=== PATIENT | male | born 1945 | race Caucasian/White ===

== ENCOUNTER → 2017-11-22 | Outpatient (CLI) | payer MEDICARE, OTHER ==
[~2017-11-22] MED LIST: ALLOPURINOL 30300 M2 PO; ASPIR 8181 MG PO; ASPIRIN325 PO; BACTRIM DS TAB1 EACH; CIPRO500 MG PO; FISH OIL 1,0001 EAC8 PO; IRON325 PO; LEVSIN0.125 MG PO; LISINOPRIL10 MG PO; LOVASTATIN 20 M20 MG PO; OSTEO BI-FLEX1 EAC1; OSTEO BI-FLEX1 EAC1 PO; PERCOCET 10-321 EACH PO; PHENAZOPYRIDIN200 M2 PO; POTASSIUM CHLO10 ME1 PO; PROSCAR 5MG TABL5 MG; TOPROL XL50 MG PO; UROCIT-K10 ME1 PO; ZOCOR 10 MG TAB10 MG PO
--- NOTE | 2017-11-22 16:05 | EXE ---
[place] [address] STRESS ECHOCARDIOGRAM Name: SHANT SMITH Room: [facility]#: [id number] Admission: 11/22/17 Attend Phys: Hernandez Cheney, Discharge: Date of : 41 Date of Service: 11/22/17 1605 Report #: [id number] THIS REPORT FOR: //name// APPROVED REPORT Study performed: 11/22/2017 13:00:30 Exam: Stress Echocardiogram Indication: Chest pain , Congestive Heart Failure Medical History Medical History: Atrial Fibrillation Cardiac Risk Factors: Hyperlipidemia, HTN, FHX of CAD Procedure The patient underwent an Exercise Stress Test using the Brent Protocol. Blood pressure, heart rate, and EKG were monitored. An Echocardiogram was performed by cd technician in four stages in quad fashion. At peak stress, four selected images were obtained and placed side by side with resting images for comparison. Echo Enhancing Agent Indication: Endocardial border delineation Agent(s) / Amount(s) Used: Optison 8 cc Stress Test Details Stress Test: Exercise stress testing was performed using a Brent protocol. HR Resting HR: 50 bpm Max Heart Rate (APMHR): 146 bpm Max HR Achieved: 133 bpm Target HR (85% APMHR): 124 bpm % of APMHR: 91 Recovery HR: 72 bpm HR response to stress: Normal HR response to stress BP Resting BP: 127/73 mmHg Max BP: 219/71 mmHg Recovery BP: 145/75 mmHg ECG Resting ECG: Sinus Rhythm Stress ECG: Sinus Rhythm ST Change: Horizontal ST depression Maximum ST Deviation: 0.5-1 [place] [address] STRESS ECHOCARDIOGRAM Name: SHANT SMITH Room: [facility]#: [id number] Admission: 11/22/17 Attend Phys: Hernandez Cheney, Discharge: Date of : 41 Date of Service: 11/22/17 1605 Report #: [id number] Recovery ECG: Sinus Rhythm Recovery ST Change: Normal Clinical Reason for Termination: Arrhythmias Stress Symptoms: Fatigue Exercise duration: 9 min sec Highest Stage Achieved: Stage 3: 3.4 mph at 14% grade. Exercise capacity: 10.16 METs Stress ECG Conclusion positive Pre-Stress Echo The resting Echocardiogram showed normal left ventricular contractility with an estimated Ejection Fraction of about 50-55%. Post-Stress Echo The stress Echocardiogram demonstrated wall motion abnormality in the apical septal wall. Conclusion Clinical Response: Non-ischemic Exercise Capacity: Superior Stress ECG Response: Ischemic Stress Echo Images: Ischemic There is a new exercise induced wall motion abnormality in the apical segment of the Left ventricle and subtle ECG abnormality Other Information Technically limited study due to body habitus. <Conclusion> There is a new exercise induced wall motion abnormality in the apical segment of the Left ventricle and subtle ECG abnormality <ELECTRONICALLY SIGNED> By: Arnoldo Reyes MD, FACC 11/22/17 1605 160 Arnoldo Reyes MD, FACC /INF
== END ==
LOC: M.CRD 12:17
DX: I50.9 Heart failure, unspecified (principal); I48.91 Unspecified atrial fibrillation

== ENCOUNTER 2019-04-17 22:56 | Inpatient (IN) | payer MEDICARE, OTHER ==
[~2019-04-17] VITALS: Ht 185.4 cm; Wt 97.9 kg
[~2019-04-17 22:56] MED LIST changes: -ALLOPURINOL 30300 M2 PO; -OSTEO BI-FLEX1 EAC1; -PROSCAR 5MG TABL5 MG; +PROSCAR 5MG TABL5 MG PO; +ZYLOPRIM300 MG PO
[2019-04-17 22:58] VITALS: BP 173/78
[2019-04-17 23:18] LABS: ABSOLUTE BASOPHILS 0.1 thou/uL (0.0-0.2); ABSOLUTE EOSINOPHILS 0.1 thou/uL (0.0-0.7); ABSOLUTE LYMPHOCYTES 1.8 thou/uL (0.8-5.3); ABSOLUTE MONOCYTES 0.6 thou/uL (0.0-1.2); ABSOLUTE NEUTROPHILS 4.3 thou/uL (1.6-8.1); BASOPHILS 1.1 %; EOSINOPHILS 1.4 %; HEMATOCRIT 40.7 % (42.0-52.0); HEMOGLOBIN 13.4 gm/dL (14.0-18.0); LYMPHOCYTES 25.7 %; MCH 29.7 pg (26.0-34.0); MCHC 32.8 g/dL (28.0-37.0); MCV 90.5 fL (80.0-100.0); MONOCYTES 8.7 %; MPV 11.3 fl. (7.2-11.1); NUCLEATED RBCS 0 /100WBC; PLATELET COUNT* 139 thou/uL (150-400); POLYS 63.1 %; RDW-CV 15.7 % (10.5-14.5); WBC 6.8 thou/uL (4.0-11.0)
[2019-04-17] MEDS ORDERED: NAPROSYN500 MG PO (23:19)
[2019-04-17] MEDS ORDERED: CLOTRIMAZOLE10 MG MM (23:20)
[2019-04-17] MEDS ORDERED: OMEPRAZOLE 20 M20 M1 PO (23:20)
[2019-04-17] MEDS ORDERED: DULCOLAX5 MG PO (23:21)
[2019-04-17 23:38] LABS: APTT 26.7 Seconds (25.0-31.3); INR 1.1; PROTIME 11.2 Seconds (9.20-11.50)
[2019-04-17 23:47] LABS: ANION GAP 9 mmol/L (7-16); BUN 36 mg/dL (7-18); CALCIUM 9.1 mg/dL (8.5-10.1); CHLORIDE 106 mmol/L (98-107); CO2 26 mmol/L (21-32); CREATININE 1.5 mg/dL (0.6-1.3); GLUCOSE 154 mg/dL (70-99); SODIUM 141 mmol/L (136-145)
[2019-04-17 23:58] LABS: ALBUMIN 3.8 g/dL (3.4-5.0); ALKALINE PHOSPHATASE 73 U/L (46-116); SGOT 12 U/L (15-37); SGPT 22 U/L (30-65); TOTAL BILIRUBIN 0.3 mg/dL (<0.1-1.0); TOTAL PROTEIN 7.2 g/dL (6.4-8.2); TROPONIN-I LEVEL <0.06 ng/mL (<0.06)
[2019-04-18] VITALS (30 sets, daily range): BP systolic 139–187; BP diastolic 57–120
[2019-04-18] MEDS ORDERED: METOPROLOL SUC100 MG PO (03:55)
[2019-04-18 10:29] LABS: ALBUMIN 3.1 g/dL (3.4-5.0); CALCIUM 8.3 mg/dL (8.5-10.1); CREATININE 1.4 mg/dL (0.6-1.3); POTASSIUM 4.1 mmol/L (3.5-5.1); TOTAL BILIRUBIN 0.4 mg/dL (<0.1-1.0); TOTAL PROTEIN 6.1 g/dL (6.4-8.2)
--- NOTE | 2019-04-18 10:39 | EKG ---
[place] [address] ELECTROCARDIOGRAM REPORT Name: SMITHSHANT Nicole Room: [address] ADM IN .R.#: [id number] Admission: 04/18/19 Attend Phys: Sumeet Pagan MD Discharge: Date of : 41 Report #: [id number] THIS REPORT FOR: //name// [facility] ED Test Date: 2019-04-17 Test Time: 23:07:38 Pat Name: SHANT SMITH Department: Room: [facility] Gender: M Inspector Missile: : 1945 Requested By: Zenon Miramontes Order Number: [id number] MD: James Kearney Measurements Intervals [place] Rate: 56 P: 44 DC: 156 QRS: 23 QRSD: 97 T: 24 QT: 452 QTc: 437 Interpretive Statements Sinus rhythm Compared to ECG 10/20/2016 21:14:20 No significant changes Electronically Signed On 04-18-2019 10:39:43 CDT by James Kearney [email or web address] <ELECTRONICALLY SIGNED> By: James Kearney MD, [facility] 04/18/19 1039 06 06 James Kearney MD, FACC /EPI
--- NOTE | 2019-04-18 13:37 | 2DMMODE ---
[place] [address] 2 D/M-MODE ECHOCARDIOGRAM Name: SHANT SMITH Room: [address] IN [facility]#: [id number] Admission: 04/18/19 Attend Phys: Sumeet Pagan, Discharge: Date of : 41 Date of Service: 04/18/19 1337 Report #: [id number] THIS REPORT FOR: //name// APPROVED REPORT Study performed: 04/18/2019 10:01:50 EXAM: Comprehensive 2D, Doppler, and color-flow Echocardiogram Patient Location: In-Patient Room #: 008 Status: routine BSA: 2.28 HR: 52 bpm BP: 176/87 mmHg Rhythm: NSR Other Information Study Quality: Good Indications CVA/TIA Echo Enhancing Agent Indication: Rule out Shunt Agent(s) / Amount(s) Used: Agitated Saline 10 cc 2D Dimensions IVSd: 14.86 (7-11mm) LVOT Diam: 20.83 (18-24mm) LVDd: 52.65 mm PWd: 13.40 (7-11mm) Ascending Ao: 30.73 (22-36mm) LVDs: 35.15 (25-40mm) Aortic Root: 29.67 mm Volumes Left Atrial Volume (Systole) LA ESV Index: 39.00 mL/m2 Aortic Valve AoV Peak Henry.: 1.14 m/s AO Peak Gr.: 5.22 mmHg LVOT Max P.47 mmHg AO Mean Gr.: 2.86 mmHg LVOT Mean P.58 mmHg LVOT Max V: 0.93 m/s AO V2 VTI: 27.74 cm LVOT Mean V: 0.57 m/s PRIYANK (VTI): 3.27 cm2 LVOT V1 VTI: 26.64 [place] [address] 2 D/M-MODE ECHOCARDIOGRAM Name: SHANT SMITH Room: [address] IN ..#: [id number] Admission: 04/18/19 Attend Phys: Sumeet Pagan, Discharge: Date of : 41 Date of Service: 04/18/19 1337 Report #: [id number] Mitral Valve E/A Ratio: 1.12 MV Decel. Time: 194.76 ms MV E Max Henry.: 0.95 m/s MV PHT: 56.48 ms MVA (PHT): 3.90 cm2 TDI E/Lateral E': 10.56 E/Medial E': 10.56 Medial E' Henry.: 0.09 m/s Lateral E' Henry.: 0.09 m/s Pulmonary Valve PV Peak Henry.: 0.79 m/s PV Peak Gr.: 2.51 mmHg Tricuspid Valve RAP Estimate: 5.00 mmHg TR Peak Gr.: 27.19 mmHg RVSP: 32.00 mmHg PA Pressure: 32.00 mmHg Left Ventricle The left ventricle is normal size. There is normal LV segmental wall motion. Mild concentric left ventricular hypertrophy. Left ventricular systolic function is normal. The left ventricular ejection fraction is within the normal range. LVEF is 55-60%. Right Ventricle The right ventricle is normal size. The right ventricular systolic function is normal. Atria Left atrium is mildly dilated. Interatrial septum is intact without evidence of ASD or PFO. The right atrium size is normal. Aortic Valve The aortic valve is normal in structure. Trace aortic regurgitation. There is no aortic valvular stenosis. Mitral Valve The mitral valve is normal in structure. Mild mitral regurgitation. No evidence of mitral valve stenosis. Tricuspid Valve The tricuspid valve is normal in structure. Trace tricuspid regurgitation. estimated pa pressure 35 [place] [address] 2 D/M-MODE ECHOCARDIOGRAM Name: SHANT SMITH Room: [address] IN ..#: [id number] Admission: 04/18/19 Attend Phys: Sumeet Pagan, Discharge: Date of : 41 Date of Service: 04/18/19 1337 Report #: [id number] Pulmonic Valve The pulmonary valve is normal in structure. Mild pulmonic regurgitation. Great Vessels The aortic root is normal in size. IVC is normal in size and collapses >50% with inspiration. Pericardium There is no pericardial effusion. <Conclusion> Mild concentric left ventricular hypertrophy. LVEF is 55-60%. Left atrium is mildly dilated. Mild mitral regurgitation. Interatrial septum is intact without evidence of ASD or PFO. <ELECTRONICALLY SIGNED> By: James Kearney MD, FACC 04/18/19 1337 1337 133 James Kearney MD, FACC /INF
[2019-04-19] VITALS (9 sets, daily range): BP systolic 155–180; BP diastolic 72–80
[2019-04-19 07:27] LABS: CHOLESTEROL 160 mg/dL (<200); HDL CHOLESTEROL 43 mg/dL (>40); LDL CHOLESTEROL 93 mg/dL (<100); TC:HDL 3.7 Ratio (Not establshd); TRIGLYCERIDE 120 mg/dL (<150); VLDL 24 mg/dL (<40)
[2019-04-19 07:37] LABS: SERUM ASSESSMENT Clear
[2019-04-20] VITALS: BP 175/41
[2019-04-20 04:00] VITALS: BP 129/82
[2019-04-20 07:00] VITALS: BP 130/72
[2019-04-20 11:51] VITALS: BP 136/48
[2019-04-20 12:03] VITALS: BP 136/48
[2019-04-20] MEDS ORDERED: ELIQUIS5 MG PO (15:03)
[2019-04-21 13:46] LABS: GLYCOHEMOGLOBIN (HGB A1C) 6.1 % (4.8-5.6)
--- NOTE | 2019-04-21 16:14 | EKG ---
[place] [address] ELECTROCARDIOGRAM REPORT Name: SARAHSHANT Nicole Room: [address] IN M.R.#: [id number] Admission: 04/18/19 Attend Phys: Sumeet Pagan MD Discharge: 04/20/19 Date of : 41 Report #: [id number] THIS REPORT FOR: //name// [facility] Test Date: 2019-04-20 Test Time: 01:33:40 Pat Name: SHANT SMITH Department: Room: [address] Gender: M Beet [employer] Supervisor: JOHN : 1945 Requested By: Sumeet Pagan Order Number: [id number] Reading MD: Troy Matamoros Measurements Intervals [place] Rate: 87 P: [place]: QRS: -3 QRSD: 92 T: 28 QT: 397 QTc: 478 Interpretive Statements Atrial flutter with variable block Abnormal R-wave progression, early transition Borderline prolonged QT interval Compared to ECG 04/17/2019 23:07:38 Atrial flutter with variable block is noted Sinus rhythm no longer present Electronically Signed On 04-21-2019 16:14:42 CDT by Troy Matamoros [email or web address] <ELECTRONICALLY SIGNED> By: Troy Matamoros MD, [facility] 04/21/19 1614 2 013 Troy Matamoros MD, [facility] /EPI
== END 2019-04-20 15:15 | disposition home or self-care (01) | DRG 62 ==
LOC: M.ERS 22:56 → M.ICU 04-18 01:39 → M.TBA-ER 04-18 01:39 → M.ICU 04-18 01:48 → M.2W 04-19 18:15
PROVIDERS: Family Medicine; ADMIT Internal Medicine
DX: I63.9 Cerebral infarction, unspecified (principal); N17.9 Acute kidney failure, unspecified; M10.9 Gout, unspecified; I48.91 Unspecified atrial fibrillation; I10 Essential (primary) hypertension; R29.810 Facial weakness; M19.90 Unspecified osteoarthritis, unspecified site; I72.9 Aneurysm of unspecified site; Z87.442 Personal history of urinary calculi; Z88.0 Allergy status to penicillin

== ENCOUNTER → 2020-09-22 | Outpatient (CLI) | payer MEDICARE, OTHER ==
[~2020-09-22] MED LIST changes: +CLOTRIMAZOLE10 MG MM; +DULCOLAX5 MG PO; +ELIQUIS5 MG PO; +METOPROLOL SUC100 MG PO; +NAPROSYN500 MG PO; +OMEPRAZOLE 20 M20 M1 PO
== END ==
LOC: M.MRI 13:56
PROVIDERS: ATTEND Internal Medicine
DX: I67.82 Cerebral ischemia (principal); G93.89 Other specified disorders of brain